=== PATIENT | female | born 1990 | race Caucasian/White ===

== ENCOUNTER 2017-09-08 23:05 | Emergency (ER) | payer SELFPAY | END 2017-09-09 | disposition home or self-care (01) | LOC: ER 23:05 | DX: M77.9 Enthesopathy, unspecified (principal); M79.602 Pain in left arm | CPT/HCPCS: 99283 ==

== ENCOUNTER 2017-11-26 18:52 | Emergency (ER) | payer SELFPAY ==
[2017-11-26] MEDS: AZITHROMYCIN 250 MG TABLET. PO (20:00)
[2017-11-26] MEDS: cefTRIAXone IM 250 MG VIAL IM (20:00)
[2017-11-26 20:05] LABS: BILIRUBIN,URINE SMALL (NEG); CLARITY,URINE CLEAR; COLOR,URINE YELLOW; GLUCOSE,URINE NEGATIVE (NEG); NITRITE,URINE NEGATIVE (NEG); PROTEIN,URINE NEGATIVE (NEG-TRACE)
[2017-11-26 20:14] LABS: BACTERIA,URINE MODERATE /HPF (0-FEW); RBC,URINE 0 /HPF (0-2); SQUAMOUS EPITHELIAL CELL,UR MOD /LPF
[2017-11-26 20:19] LABS: NEG OBC UR NEG; POS OBC UR POS; U PREG PATIENT NEGATIVE (NEG)
[2017-11-28 14:29] LABS: CHLAMYDIA PROBE Negative (Negative); GC PROBE Negative (Negative)
== END 2017-11-26 21:30 | disposition home or self-care (01) ==
LOC: ER 18:52
DX: N39.0 Urinary tract infection, site not specified (principal); Z20.2 Contact with and (suspected) exposure to infections with a predominantly sexual mode of transmission; Z88.8 Allergy status to other drugs, medicaments and biological substances; Z91.013 Allergy to seafood; Z91.018 Allergy to other foods
CPT/HCPCS: 81001; 81025; 87086; 87491; 87591; 96372; 99284; J0696; Q0111; Q0144

== ENCOUNTER 2018-08-09 16:20 | Emergency (ER) | payer SELFPAY ==
[~2018-08-09] VITALS: Ht 165.1 cm; Wt 81.6 kg
[~2018-08-09 16:20] MED LIST: CIPR500S3 PO; CIPR500T94 PO; PRED20TA PO
[2018-08-09] MEDS ORDERED: ONDANSETRON PF 4 MG/2 ML VIAL. IV ONE (17:00)
[2018-08-09] MEDS ORDERED: methylPREDNISolone SOD SUCC PF 125 MG/2 ML VIAL. IV ONE (17:00)
[2018-08-09] MEDS ORDERED: IV NORMAL SALINE 1000ML BAG 1,000 ML IV ONE (17:00)
[2018-08-09] MEDS ORDERED: IBUPROFEN 400 MG TABLET. PO ONE (17:00)
[2018-08-09] MEDS ORDERED: CONTRAST GIVEN. MC PRN (17:30)
[2018-08-09] MEDS ORDERED: IOHEXOL 300 MG/ML 100ML VIAL. IV ONE (17:30)
[2018-08-09 17:34] LABS: BASO # 0.1 x10^3/uL (0.0-0.2); BASO % 0 % (0-3); EOS % 0 % (0-3); HEMATOCRIT 36.8 % (36.0-47.0); HEMOGLOBIN 12.1 g/dL (12.0-15.5); LYMPH # 1.2 x10^3/uL (1.0-4.8); LYMPH % 8 % (24-48); MEAN CORPUSCULAR HEMOGLOBIN 27 pg (25-35); MEAN CORPUSCULAR HGB CONC 33 g/dL (31-37); MEAN CORPUSCULAR VOLUME 82 fL (79-100); MONO # 1.3 x10^3/uL (0.0-1.1); MONO % 9 % (0-9); NEUT # 13.1 x10^3uL (1.8-7.7); NEUT % 84 % (31-73); PLATELET COUNT 249 x10^3/uL (140-400); RED BLOOD COUNT 4.49 x10^6/uL (3.50-5.40); RED CELL DISTRIBUTION WIDTH 14.5 % (11.5-14.5); WHITE BLOOD COUNT 15.7 x10^3/uL (4.0-11.0)
[2018-08-09 17:41] LABS: CALCIUM 8.9 mg/dL (8.5-10.1); GFR 65.1; POTASSIUM 3.6 mmol/L (3.5-5.1)
[2018-08-09 17:47] LABS: ALBUMIN 3.8 g/dL (3.4-5.0); ALBUMIN/GLOBULIN RATIO 0.9 (1.0-1.7); TOTAL BILIRUBIN 0.6 mg/dL (0.2-1.0); TOTAL PROTEIN 8.1 g/dL (6.4-8.2)
[2018-08-09 18:02] LABS: % EOS 1 % (0-5); % LYMPHS 11 % (24-48); % MONOS 4 % (0-10); % SEGS 84 % (35-66); ANISOCYTOSIS SLIGHT; PLT ESTIMATE ADEQUATE (ADEQUATE); TOXIC GRANULATION SLIGHT
[2018-08-09 18:30] VITALS: BP 145/77
--- NOTE | 2018-08-09 18:47 | RAD ---
Examination: CT soft tissue neck with IV contrast HISTORY: History of left foot swelling, pain, fever TECHNIQUE: Axial CT images of the soft tissue neck were performed with IV contrast. Coronal and sagittal reformats are performed. Exposure: One or more of the following individualized dose reduction techniques were utilized for this examination: 1. Automated exposure control 2. Adjustment of the mA and/or kV according to patient size 3. Use of iterative reconstruction technique FINDINGS: The visualized intracranial portion grossly appears unremarkable. The bilateral parotid glands, masticators spaces grossly appears unremarkable. The bilateral orbital globes appear intact. The visualized vallecula, piriform sinuses grossly appears unremarkable. There is mild to moderate enlarged bilateral tonsils without focal fluid collection to suggest an abscess. The vocal cord grossly appears unremarkable. The visualized thyroid gland grossly appears unremarkable. Enlarged bilateral cervical lymph nodes identified with largest measuring 1.6 cm and the left could be reactive lymphadenopathy. The apical lungs are clear. No evidence of lytic bony destructive lesion. IMPRESSION: 1. Enlarged bilateral tonsils. Correlate for tonsillitis. No evidence of peritonsillar abscess. 2. Mild prominent appearing bilateral cervical lymph nodes likely reactive lymphadenopathy. Electronically signed by: Sohail Tom MD (08/09/2018 6:44 PM) [place] [id number]
[2018-08-09] MEDS ORDERED: ACETAMINOPHEN 500 MG TABLET PO ONE (19:00)
--- NOTE | 2018-08-09 19:03 | PHYS DOC ---
Past Medical History Past Medical History: No Pertinent History Additional Past Medical Histor: PTSD and Heart murmur (ULISES SARAH APRN) Past Surgical History: No Surgical History Additional Past Surgical Histo: skin graphs (ULISES SARAH APRN) Alcohol Use: None Drug Use: None (ULISES SARAH APRN) Adult General Chief Complaint Chief Complaint: SORE THROAT HPI HPI Patient is a 28 year old female presents for evaluation of sore throat and fever started today. Patient reports 2 days prior she started not feeling well had some nausea and vomiting which resolved. She has not taken any medication for fever upon arrival to the emergency room. Denies chest or abdominal pain. She complains of pain more on the left side of her throat than the right, holding the left side of her throat c her hands. (ULISES SARAH APRN) Review of Systems Review of Systems Constitutional: + fever and chills [] Eyes: Denies change in visual acuity, redness, or eye pain [] HENT: Reports sore throat[] Respiratory: Denies cough or shortness of breath [] Cardiovascular: No additional information not addressed in HPI [] GI: Nausea and vomiting, no abdominal pain[] : Denies dysuria or hematuria [] Musculoskeletal: Denies back pain or joint pain [] Integument: Denies rash or skin lesions [] Neurologic: Denies headache, focal weakness or sensory changes [] Endocrine: Denies polyuria or polydipsia [] All other systems were reviewed and found to be within normal limits, except as documented in this note. (ULISES SARAH APRN) Current Medications Current Medications Current Medications Medications (Trade) Dose Ordered Sig/Reyna Start Time Stop Time Status Last Admin Dose Admin Acetaminophen (Tylenol) 1,000 mg 1X ONCE 08/09/18 19:00 08/09/18 19:01 DC 08/09/18 19:03 1,000 MG Amoxicillin/ Clavulanate Potassium (Augmentin 875/ 125mg) 1 tab 1X ONCE 08/09/18 19:15 08/09/18 19:16 DC Ibuprofen (Motrin) 800 mg 1X ONCE 08/09/18 17:00 08/09/18 17:01 DC 08/09/18 17:20 800 MG Info (CONTRAST GIVEN -- Rx MONITORING) 1 each PRN DAILY PRN 08/09/18 17:30 08/09/18 19:30 DC Iohexol (Omnipaque 300 Mg/ml) 70 ml 1X ONCE 08/09/18 17:30 08/09/18 17:31 DC 08/09/18 17:57 70 ML Methylprednisolone Sodium Succinate (SOLU-Medrol 125MG VIAL) 125 mg 1X ONCE 08/09/18 17:00 08/09/18 17:01 DC 08/09/18 17:20 125 MG Ondansetron HCl (Zofran) 4 mg 1X ONCE 08/09/18 17:00 08/09/18 17:01 DC 08/09/18 17:20 4 MG Sodium Chloride 1,000 ml @ 1,000 mls/hr 1X ONCE 08/09/18 17:00 08/09/18 17:59 DC (ROD GARCIA DO) Allergies Allergies Allergies Coded Allergies Type Severity Reaction Last Updated Verified divalproex sodium Allergy Unknown 11/26/17 Yes onion Allergy Unknown 11/26/17 Yes shrimp Allergy Unknown 11/26/17 Yes (ROD GARCIA DO) Physical Exam Physical Exam Constitutional: Well developed, well nourished, no acute distress, non-toxic appearance. [] HENT: Normocephalic, atraumatic, bilateral external ears normal, oropharynx moist, no oral exudates + bilat tonsillar swelling and erythema, nose normal. [] Eyes: PERRLA, EOMI, conjunctiva normal, no discharge. [] Neck: Normal range of motion, no tenderness, supple, no stridor + bilat cervical lymphadenopathy. [] Cardiovascular:Heart rate regular rhythm, no murmur [] Lungs & Thorax: Bilateral breath sounds clear to auscultation [] Abdomen: Bowel sounds normal, soft, no tenderness, no masses, no pulsatile masses. [] Skin: Warm, dry, no erythema, no rash. [] Neurologic: Alert and oriented X 3, normal motor function, normal sensory function, no focal deficits noted. [] Psychologic: Affect normal, judgement normal, mood normal. [] (ULISES SARAH APRN) Current Patient Data Vital Signs Vital Signs Date Time Temp Pulse Resp B/P (MAP) Pulse Ox O2 Delivery O2 Flow Rate FiO2 08/09/18 19:24 99.3 99.3 08/09/18 18:30 102 20 145/77 (99) 99 Room Air ([facility]) Lab Values Laboratory Tests Test 08/09/18 16:25 08/09/18 16:57 08/09/18 17:20 Group A Streptococcus Rapid Negative (NEGATIVE) POC Urine HCG, Qualitative Hcg negative (Negative) White Blood Count 15.7 x10^3/uL (4.0-11.0) H Red Blood Count 4.49 x10^6/uL (3.50-5.40) Hemoglobin 12.1 g/dL (12.0-15.5) Hematocrit 36.8 % (36.0-47.0) Mean Corpuscular Volume 82 fL (79-100) Mean Corpuscular Hemoglobin 27 pg (25-35) Mean Corpuscular Hemoglobin Concent 33 g/dL (31-37) Red Cell Distribution Width 14.5 % (11.5-14.5) Platelet Count 249 x10^3/uL (140-400) Neutrophils (%) (Auto) 84 % (31-73) H Lymphocytes (%) (Auto) 8 % (24-48) L Monocytes (%) (Auto) 9 % (0-9) Eosinophils (%) (Auto) 0 % (0-3) Basophils (%) (Auto) 0 % (0-3) Neutrophils # (Auto) 13.1 x10^3uL (1.8-7.7) H Lymphocytes # (Auto) 1.2 x10^3/uL (1.0-4.8) Monocytes # (Auto) 1.3 x10^3/uL (0.0-1.1) H Eosinophils # (Auto) 0.0 x10^3/uL (0.0-0.7) Basophils # (Auto) 0.1 x10^3/uL (0.0-0.2) Segmented Neutrophils % 84 % (35-66) H Lymphocytes % 11 % (24-48) L Monocytes % 4 % (0-10) Eosinophils % 1 % (0-5) Toxic Granulation Slight Platelet Estimate Adequate (ADEQUATE) Anisocytosis Slight Sodium Level 139 mmol/L (136-145) Potassium Level 3.6 mmol/L (3.5-5.1) Chloride Level 103 mmol/L (98-107) Carbon Dioxide Level 28 mmol/L (21-32) Anion Gap 8 (6-14) Blood Urea Nitrogen 5 mg/dL (7-20) L Creatinine 1.0 mg/dL (0.6-1.0) Estimated GFR (Cockcroft-Gault) 65.1 BUN/Creatinine Ratio 5 (6-20) L Glucose Level 110 mg/dL (70-99) H Calcium Level 8.9 mg/dL (8.5-10.1) Total Bilirubin 0.6 mg/dL (0.2-1.0) Aspartate Amino Transferase (AST) 19 U/L (15-37) Alanine Aminotransferase (ALT) 31 U/L (14-59) Alkaline Phosphatase 96 U/L (46-116) Total Protein 8.1 g/dL (6.4-8.2) Albumin 3.8 g/dL (3.4-5.0) Albumin/Globulin Ratio 0.9 (1.0-1.7) L Heterophil Agglutinins Negative (NEGATIVE) Laboratory Tests 08/09/18 17:20 Laboratory Tests 08/09/18 17:20 (ROD GARCIA DO) EKG EKG [] (ULISES SARAH APRN) Radiology/Procedures Radiology/Procedures [REASON: LEFT THROAT SWELLING, PAIN, FEVER, OMNI 300, 70ml PROCEDURE: CT SOFT TISSUE NECK W/CONTRAST Examination: CT soft tissue neck with IV contrast HISTORY: History of left foot swelling, pain, fever TECHNIQUE: Axial CT images of the soft tissue neck were performed with IV contrast. Coronal and sagittal reformats are performed. Exposure: One or more of the following individualized dose reduction techniques were utilized for this examination: 1. Automated exposure control 2. Adjustment of the mA and/or kV according to patient size 3. Use of iterative reconstruction technique FINDINGS: The visualized intracranial portion grossly appears unremarkable. The bilateral parotid glands, masticators spaces grossly appears unremarkable. The bilateral orbital globes appear intact. The visualized vallecula, piriform sinuses grossly appears unremarkable. There is mild to moderate enlarged bilateral tonsils without focal fluid collection to suggest an abscess. The vocal cord grossly appears unremarkable. The visualized thyroid gland grossly appears unremarkable. Enlarged bilateral cervical lymph nodes identified with largest measuring 1.6 cm and the left could be reactive lymphadenopathy. The apical lungs are clear. No evidence of lytic bony destructive lesion. IMPRESSION: 1. Enlarged bilateral tonsils. Correlate for tonsillitis. No evidence of peritonsillar abscess. 2. Mild prominent appearing bilateral cervical lymph nodes likely reactive lymphadenopathy. Electronically signed by: Sohail Tom MD (08/09/2018 6:44 PM) [facility] ] (ULISES SARAH APRN) Course & Med Decision Making Course & Med Decision Making Pertinent Labs and Imaging studies reviewed. (See chart for details) [] (ULISES SARAH APRN) Dragon Disclaimer Dragon Disclaimer This electronic medical record was generated, in whole or in part, using a voice recognition dictation system. (ULISES SARAH APRN) Departure Departure Impression: Primary Impression: Tonsillitis Disposition: HOME, SELF-CARE Condition: STABLE Referrals: NO PCP (PCP) Patient Instructions: Tonsillitis, [id number] Scripts Amoxicillin/Potassium Clav (AUGMENTIN 875-125 TABLET) 1 Each Tablet 1 TAB PO BID, #20 TAB Prov: ULISES SARAH APRN 08/09/18 Attending Signature Attending Signature I have reviewed the PA/[employer] TRAFFIC DEPARTMENT MANAGER's note and plan of care. I was available for consultation as needed during the patient's visit in the emergency department. I agree with the clinical impression, plan, and disposition. (ROD GARCIA DO) ULISES SARAH APRN Aug 09, 2018 19:03 ROD GARCIA DO Aug 12, 2018 05:11
[2018-08-09 19:06] LABS: MONONUCLEOSIS PATIENT NEGATIVE (NEGATIVE)
[2018-08-09] MEDS ORDERED: AMOXICILLIN/K CLAV 875/125MG TABLET. PO ONE (19:15)
[2018-08-09] MEDS ORDERED: AMOX1TAB61 PO (19:18)
== END 2018-08-09 19:25 | disposition home or self-care (01) ==
LOC: ER 16:20
DX: J03.90 Acute tonsillitis, unspecified (principal); R11.2 Nausea with vomiting, unspecified; R50.9 Fever, unspecified; Z91.013 Allergy to seafood; Z88.8 Allergy status to other drugs, medicaments and biological substances; Z91.018 Allergy to other foods
CPT/HCPCS: 36415; 70491; 80053; 81025; 85007; 85025; 86308; 87070; 87880; 96374; 96375; 99284; J2405; J2930; Q9967